=== PATIENT | female | born 1945 | race American Indian/Alaskan Native ===

== ENCOUNTER 2016-09-22 11:43 | Emergency (ER) | payer MEDICARE ==
[2016-09-22 12:04] VITALS: BP 145/75
--- NOTE | 2016-09-22 14:57 | Emergency Department Report ---
HPI - General Chief Complaint: Earache - HPI HPI: 71-year-old -[place] female comes in reports that she has cotton stuck in her left ear and needs some assistance in removing it. Patient reports that she was cleaning her ear yesterday and used a Q-tip while cleaning an piece of it came out stuck in her ear. She denies any ear pain she denies any headache she denies any drainage from the ear she has no other concerns at this time. ED Past Medical Hx - Past Medical History Previous Medical History?: Yes Hx of Cancer: Yes (currently under tx (began 2010)) - Surgical History Past Surgical History?: Yes Additional Surgical History: partial rt breast mysectomy - Social History Smoking Status: Former Smoker Substance Use Type: None ED Review of Systems ROS: Stated complaint: FB IN LEFT EAR Other details as noted in HPI Comment: All other systems reviewed and negative Physical Exam - Physical Exam Vital Signs: Vital Signs 09/22/16 11:59 Temperature 98.7 F Pulse Rate 92 H Blood Pressure 145/75 O2 Sat by Pulse 98 Oximetry Physical Exam: GENERAL: Alert and oriented x3, no apparent distress, Normal Gait, atraumatic. HEAD: Head is normocephalic and a-traumatic. EYES: Extra ocular muscles are intact. Pupils are equal, round, and reactive to light and accommodation. EARS: symetrical, atraumatic, non tender, left ear canal has white cotton while right ear canal is clear. tympanic membrance non inflamed. gross auditory nml bilaterally. NEUROLOGIC: No focal Deficit, Cranial nerves II through XII are grossly intact. No loss of sensation, No facial droop, Negative rhomberg. PSYCHIATRIC: Mood is congruent with affect, SKIN: Warm and dry, No lesions, No ulceration or induration present ED Course Vital Signs 09/22/16 11:59 Temperature 98.7 F Pulse Rate 92 H Blood Pressure 145/75 O2 Sat by Pulse 98 Oximetry ED Medical Decision Making - Medical Decision Making Patient's been evaluated by this provider [facility]. Remove cotton by using an alligator forceps to the left ear after moisturizing it with normal saline. That's the patient that she does not need to be placement into a antibiotics there is no erythematous not edematous of the canal. Recommend patient not to use Q-tips to the ear. Critical care attestation.: If time is entered above; I have spent that time in minutes in the direct care of this critically ill patient, excluding procedure time. ED Disposition Clinical Impression: Foreign body in left ear Qualifiers: Encounter type: initial encounter Qualified Code(s): T16.2XXA - Foreign body in left ear, initial encounter Disposition: DISCHARGED TO HOME OR SELFCARE Is pt being admited?: No Does the pt Need Aspirin: No Condition: Stable Additional Instructions: Important not to put anything larger than her elbow into your left ear or right ear. Please follow up with her primary care provider he had any more signs or symptoms. Referrals: PRIMARY CARE, [Primary Care Provider] - 3-5 Days
== END 2016-09-22 15:05 | disposition home or self-care (01) ==
LOC: ED 11:43
DX: T16.2XXA Foreign body in left ear, initial encounter (principal); Z87.891 Personal history of nicotine dependence; Z90.11 Acquired absence of right breast and nipple; W45.8XXA Other foreign body or object entering through skin, initial encounter; Y93.89 Activity, other specified; Y99.8 Other external cause status; Y92.89 Other specified places as the place of occurrence of the external cause